=== PATIENT | female | born 1980 | race Two or more races ===

== ENCOUNTER 2016-06-11 03:43 | Emergency (ER) | payer OTHER ==
[~2016-06-11] VITALS: Ht 170.2 cm; Wt 59.0 kg
[2016-06-11 03:47] VITALS: BP 113/67
[2016-06-11] MEDS ORDERED: SODIUM CHLORIDE 0.9% 1,000 ML IVB ONE (04:31)
[2016-06-11 04:34] LABS: Basophils # (auto) 0 uL; Basophils % (auto) 0.7 % (0.0-2.0); DEFINITIVE VIEW TRANSMISSION; Eosinophils # (auto) 0 uL; Eosinophils % (auto) 0.8 % (0.0-7.0); Hematocrit 38.1 % (36.0-46.0); Hemoglobin 12.2 g/dL (12.2-16.2); Lymphocytes # (auto) 2.9 uL; Lymphocytes % (auto) 53.5 % (10.0-50.0); Mean Corpuscular Hemoglobin 26.2 pg (28.0-32.0); Mean Corpuscular Hgb Conc. 32.2 g/dL (32.0-36.0); Mean Corpuscular Volume 81.4 fL (80.0-100.0); Monocytes # (auto) 0.2 uL; Monocytes % (auto) 3.9 % (0.0-12.0); Neutrophils # (auto) 2.2 uL; Neutrophils % (auto) 41.1 % (37.0-80.0); Platelet Count (auto) 331 10^3/uL (140-450); Red Cell Distribution Width 17.1 % (11.6-16.0); White Blood Cell 5.5 10^3/uL (4.4-10.8)
[2016-06-11 04:59] LABS: Albumin 3.5 g/dL (3.4-5.0); Alkaline Phosphatase 63 U/L (45-117); Anion Gap 11 (5-15); Aspartate Aminotransferase 15 U/L (15-37); BUN/Creatinine Ratio 14.7; Bilirubin, Total 0.2 mg/dL (0.2-1.0); Blood Urea Nitrogen 11 mg/dL (7-18); Calcium 8.2 mg/dL (8.5-10.1); Carbon Dioxide 26 mmol/L (21-32); Chloride 115 mmol/L (98-107); GFR African American 114 mL/min; GFR Non-African American 94 mL/min; Glucose 100 mg/dL (74-106); Magnesium 2.2 mg/dL (1.6-2.6); Potassium 3.3 mmol/L (3.5-5.1); Sodium 152 mmol/L (136-145)
[2016-06-11 05:34] LABS: Salicylate < 1.7 mg/dL (2.8-20.0)
[2016-06-11 05:35] LABS: Acetaminophen < 2.0 ug/mL (10-30)
== END 2016-06-11 05:55 | disposition left against medical advice (07) ==
LOC: ER 03:48
DX: F10.10 Alcohol abuse, uncomplicated (principal); Z53.21 Procedure and treatment not carried out due to patient leaving prior to being seen by health care provider
CPT/HCPCS: 36415; 80053; 80320; 80329; 83735; 85025; 99281; J7030